=== PATIENT | male | born 1995 ===

== ENCOUNTER 2016-11-25 02:20 | Emergency (ER) | payer SELFPAY ==
[2016-11-25] MEDS ORDERED: Bacitracin 500 Units/gm Oint Foilpak UD TOP ONE (03:04)
[2016-11-25] MEDS ORDERED: Lidocaine 1% Inj (20ml) INFIL STA (03:04)
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
[2016-11-25] MEDS ORDERED: Bacitracin 500 Units/gm Oint Foilpak UD ONE (03:22)
[2016-11-25] MEDS ORDERED: Lidocaine 1% Inj (20ml) ONE (03:22)
[2016-11-25] MEDS ORDERED: Tmp-Smz 800 mg-160 mg DS Tab PO STA (04:03)
[2016-11-25] MEDS ORDERED: Tmp-Smz 800 mg-160 mg DS Tab ONE (04:19)
[2016-11-25 04:29] VITALS: BP 128/76; PULSE 100; RESP 18; TEMP 98.9
[2016-11-25 05:47] VITALS: O2SAT 97
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
== END 2016-11-25 04:28 | disposition home or self-care (01) ==
LOC: C.ER 02:20
DX: S61.212A Laceration without foreign body of right middle finger without damage to nail, initial encounter (principal); S61.214A Laceration without foreign body of right ring finger without damage to nail, initial encounter; X99.0XXA Assault by sharp glass, initial encounter; Z23 Encounter for immunization